=== PATIENT | female | born 1960 | race Caucasian/White ===

== ENCOUNTER 2017-11-06 17:51 | Emergency (ER) | payer BC ==
[~2017-11-06] VITALS: Ht 160 cm; Wt 72.0 kg
[2017-11-06 17:56] VITALS: BP 133/96; PULSE 104; RESP 16; TEMP 98.4; O2SAT 98
[2017-11-06 18:03] VITALS: BP 133/96; PULSE 104; RESP 16; TEMP 98.4; O2SAT 98
--- NOTE | 2017-11-06 18:17 | PD ---
HPI Chief Complaint: General Weakness Time Seen by Provider: 18:02 Travel History International Travel<30 days: No Contact w/Intl Traveler<30days: No Traveled to known affect area: No History of Present Illness HPI This patient complains of excessive fatigue. She has generalized weakness. Duration 2 days. Severity is moderate. She went to an urgent care center but no testing was done and they sent her she denies fever or chest pain here. Short of breath or abdominal pain. No urinary complaints. No vomiting or diarrhea or respiratory infection symptoms. She does take thyroid medication and cholesterol medication. No alleviating factors. No exacerbating factors. PFSH Past Medical History Cardiovascular Problems: Yes (CHOL) High Cholesterol: Yes Diabetes: No Diminished Hearing: No Tetanus Vaccination: > 5 Years ?: Not Past Surgical History Tonsillectomy: Yes Other Surgery: Yes (1/2 THYROID) Social History Alcohol Use: Yes (OCC) Tobacco Use: No Substance Use: No Allergies-Medications (Allergen,Severity, Reaction): Coded Allergies: No Known Allergies (Unverified , 11/06/17) Reported Meds & Prescriptions Reported Meds & Active Scripts Active Reported Co Q 10 (Coenzyme Q10 (Ubidecarenone)) 10 Mg Cap Osteo Bi-Flex One A Day (Jqqoipsdw-Zenciqpqfre-Demycom) 1 Tab 1 Tab PO DAILY Aspirin Children's (Aspirin) 81 Mg Chew 81 Mg CHEW DAILY Spironolactone 100 Mg Tab 100 Mg PO DAILY Contrave ER 12 HR (Naltrexone HCl-Bupropion ER 12 HR) 8-90 Mg Tab 1 Tab PO DIRECTED Atorvastatin (Atorvastatin Calcium) 40 Mg Tab 40 Mg PO HS Synthroid (Levothyroxine Sodium) 150 Mcg Tab 150 Mcg PO DAILY Review of Systems General / Constitutional: No: Fever Eyes: No: Visual changes HENT: No: Headaches Cardiovascular: No: Chest Pain or Discomfort Respiratory: No: Shortness of Breath Gastrointestinal: No: Abdominal Pain Genitourinary: No: Dysuria Musculoskeletal: Positive: Weakness, No: Pain Skin: No Rash Neurologic: Positive: Weakness Psychiatric: No: Depression Endocrine: No: Polydipsia Hematologic/Lymphatic: No: Easy Bruising Physical Exam Narrative GENERAL: Well-nourished, well-developed patient in no apparent distress. SKIN: Focused skin assessment reveals no rash and nodules. Skin is Warm and dry. HEAD: Atraumatic. Normocephalic. EYES: Pupils equal and round. No scleral icterus. No injection or drainage. ENT: No nasal bleeding or discharge. Mucous membranes pink and moist. NECK: Trachea midline. No JVD. CARDIOVASCULAR: Regular rate and rhythm. No murmur appreciated. RESPIRATORY: No accessory muscle use. Clear to auscultation. Breath sounds equal bilaterally. GASTROINTESTINAL: Abdomen soft, non-tender, nondistended. Hepatic and splenic margins not palpable. MUSCULOSKELETAL: No obvious deformities. No clubbing. No cyanosis. No edema. NEUROLOGICAL: Awake and alert. No obvious cranial nerve deficits. Motor grossly within normal limits. Normal speech. PSYCHIATRIC: Appropriate mood and affect; insight and judgment normal. Data Data Last Documented VS Vital Signs Date Time Temp Pulse Resp B/P (MAP) Pulse Ox O2 Delivery O2 Flow Rate FiO2 11/06/17 19:03 94 16 121/87 (98) 97 Room Air 11/06/17 18:03 98.4 Orders Orders Iv Access Insert/Monitor (11/06/17 18:10) Complete Blood Count With Diff (11/06/17 18:10) Thyroid Stimulating Hormone (11/06/17 18:10) Comprehensive Metabolic Panel (11/06/17 18:10) Urinalysis - C+S If Indicated (11/06/17 18:10) Creatine Kinase (Cpk) (11/06/17 18:10) Electrocardiogram (11/06/17 ) Chest, Single Ap (11/06/17 ) Labs Laboratory Tests Test 11/06/17 18:16 11/06/17 18:45 White Blood Count 5.8 TH/MM3 Red Blood Count 5.06 MIL/MM3 Hemoglobin 14.9 GM/DL Hematocrit 46.0 % Mean Corpuscular Volume 90.9 FL Mean Corpuscular Hemoglobin 29.4 PG Mean Corpuscular Hemoglobin Concent 32.3 % Red Cell Distribution Width 12.2 % Platelet Count 277 TH/MM3 Mean Platelet Volume 7.5 FL Neutrophils (%) (Auto) 69.0 % Lymphocytes (%) (Auto) 18.5 % Monocytes (%) (Auto) 7.4 % Eosinophils (%) (Auto) 1.6 % Basophils (%) (Auto) 3.5 % Neutrophils # (Auto) 4.0 TH/MM3 Lymphocytes # (Auto) 1.1 TH/MM3 Monocytes # (Auto) 0.4 TH/MM3 Eosinophils # (Auto) 0.1 TH/MM3 Basophils # (Auto) 0.2 TH/MM3 CBC Comment DIFF FINAL Differential Comment Blood Urea Nitrogen 22 MG/DL Creatinine 1.20 MG/DL Random Glucose 106 MG/DL Total Protein 7.9 GM/DL Albumin 4.3 GM/DL Calcium Level 9.8 MG/DL Alkaline Phosphatase 94 U/L Aspartate Amino Transf (AST/SGOT) 10 U/L Alanine Aminotransferase (ALT/SGPT) 24 U/L Total Bilirubin 0.2 MG/DL Sodium Level 133 MEQ/L Potassium Level 4.6 MEQ/L Chloride Level 103 MEQ/L Carbon Dioxide Level 22.0 MEQ/L Anion Gap 8 MEQ/L Estimat Glomerular Filtration Rate 46 ML/MIN Total Creatine Kinase 40 U/L Thyroid Stimulating Hormone 3rd Gen 0.403 uIU/ML Urine Color YELLOW Urine Turbidity CLEAR Urine pH 6.0 Urine Specific [place] GREATER/EQUAL 1.030 Urine Protein NEG mg/dL Urine Glucose (UA) NEG mg/dL Urine Ketones NEG mg/dL Urine Occult Blood NEG Urine Nitrite NEG Urine Bilirubin NEG Urine Urobilinogen 0.2 MG/DL Urine Leukocyte Esterase NEG Urine RBC 0-3 /hpf Urine WBC 3-5 /hpf Urine Squamous Epithelial Cells 0-5 /hpf Urine Bacteria NONE /hpf Microscopic Urinalysis Comment CULT NOT INDICATED MDM Medical Decision Making Medical Screen Exam Complete: Yes Emergency Medical Condition: Yes Medical Record Reviewed: Yes Differential Diagnosis Anemia, thyroid abnormality, medication side effect Narrative Course I have reviewed the patient's electronic medical record. IV placed and labs sent Urinalysis is clean TSH is normal CBC is normal LFTs are normal Metabolic profile shows minor hyponatremia and minor decrease in GFR Workup here is negative. I reviewed her chest x-ray which is negative and her EKG which is normal Etiology is unclear. She is under a lot of stress. She will follow-up with her primary physician Dr. White. Diagnosis Primary Impression: Generalized weakness Additional Impression: Fatigue Qualified Codes: R53.83 - Other fatigue Additional Instructions: The patient was advised to follow up with their physician and return if they worsen. Med/Other Pt SpecificInfo: Other Disposition: 01 DISCHARGE HOME Condition: Stable Osei Bledsoe MD Nov 06, 2017 18:17
[2017-11-06] MEDS ORDERED: NALT1TAB3 PO (18:19)
[2017-11-06] MEDS ORDERED: CO Q10CA (18:19)
[2017-11-06] MEDS ORDERED: LEVO.15 PO (18:19)
[2017-11-06] MEDS ORDERED: ATOR40TA16 PO (18:19)
[2017-11-06] MEDS ORDERED: BOSW5TAB PO (18:19)
[2017-11-06] MEDS ORDERED: ASPI81CH7 CHEW (18:19)
[2017-11-06] MEDS ORDERED: SPIR100T PO (18:19)
[2017-11-06 18:28] LABS: BASOPHIL # 0.2 TH/MM3 (0-0.2); BASOPHIL % 3.5 % (0.0-2.0); EOSINOPHIL # 0.1 TH/MM3 (0-0.4); EOSINOPHIL % 1.6 % (0.0-4.0); HEMOGLOBIN 14.9 GM/DL (11.6-15.3); LYMPH % 18.5 % (9.0-44.0); LYMPHOCYTE # 1.1 TH/MM3 (1.0-4.8); MEAN CELL VOLUME 90.9 FL (80.0-100.0); MEAN CORPUSCULAR HEMOGLOBIN 29.4 PG (27.0-34.0); MEAN CORPUSCULAR HGB CONC 32.3 % (32.0-36.0); MEAN PLATELET VOLUME 7.5 FL (7.0-11.0); MONO % 7.4 % (0.0-8.0); MONOCYTE # 0.4 TH/MM3 (0-0.9); PLATELET COUNT 277 TH/MM3 (150-450); RED BLOOD COUNT 5.06 MIL/MM3 (4.00-5.30); RED CELL DISTRIBUTION WIDTH 12.2 % (11.6-17.2); WHITE BLOOD COUNT 5.8 TH/MM3 (4.0-11.0)
[2017-11-06 18:41] LABS: CHLORIDE 103 MEQ/L (98-107); SODIUM (NA) 133 MEQ/L (136-145)
[2017-11-06 18:44] LABS: ALBUMIN 4.3 GM/DL (3.4-5.0); CALCIUM 9.8 MG/DL (8.5-10.1); GLUCOSE,RANDOM 106 MG/DL (74-106)
[2017-11-06 18:45] LABS: BLOOD UREA NITROGEN 22 MG/DL (7-18)
[2017-11-06 18:47] LABS: ALT (GPT) 24 U/L (10-53)
[2017-11-06 18:48] LABS: AST (GOT) 10 U/L (15-37); GLOMERULAR FILTRATION RATE 46 ML/MIN (>89)
[2017-11-06 18:49] LABS: TOTAL BILIRUBIN ADULT 0.2 MG/DL (0.2-1.0); TOTAL PROTEIN 7.9 GM/DL (6.4-8.2)
[2017-11-06 18:50] LABS: ALKALINE PHOSPHATASE 94 U/L (45-117)
[2017-11-06 18:55] LABS: BILIRUBIN, URINE NEG (NEG); BLOOD, URINE NEG (NEG); GLUCOSE,URINE NEG (NEG); KETONE, URINE NEG (NEG); NITRITE,URINE NEG (NEG); URINE COLOR YELLOW (YELLW/STRAW); URINE LEUKOCYTE ESTERASE NEG (NEG)
--- NOTE | 2017-11-06 18:57 | RADRPT ---
EXAM DATE/TIME: 11/06/2017 18:37 [facility] COMPARISON: No previous studies available for comparison. INDICATIONS : Short of breath. MEDICAL HISTORY : Hypothyroidism. Hypercholesterolemia. Leonie's. SURGICAL HISTORY : Tonsillectomy. Partial thyroidectomy. ENCOUNTER: Initial ACUITY: 2 days PAIN SCORE: 0/10 LOCATION: Bilateral FINDINGS: A single view of the chest demonstrates the lungs to be symmetrically aerated without evidence of mas s, infiltrate or effusion. The cardiomediastinal contours are unremarkable. Osseous structures are intact. CONCLUSION: No acute cardiopulmonary disease demonstrated. Sunil Paz MD on November 06, 2017 at 18:55 Board Certified Radiologist. This report was verified electronically.
[2017-11-06 19:00] LABS: RBC, URINE 0-3 /hpf (0-3); SQUAMOUS EPITHELIAL CELL URINE 0-5 /hpf (0-5)
[2017-11-06 19:03] VITALS: BP 121/87; PULSE 94; RESP 16; O2SAT 97
--- NOTE | 2017-11-07 14:21 | EKG ---
Date Performed: 11/06/2017 Time Performed: 18:45:01 PTAGE: 57 years EKG: Sinus rhythm NORMAL ECG NO PREVIOUS TRACING DOCTOR: Claudia Rizzo Interpretating Date/Time 11/07/2017 14:20:11
== END 2017-11-06 19:26 | disposition home or self-care (01) ==
LOC: PHED 17:51
DX: R53.1 Weakness (principal); E78.00 Pure hypercholesterolemia, unspecified
CPT/HCPCS: 71045; 80053; 81001; 82550; 84443; 85025; 93005; 99285